=== PATIENT | female | born 1990 | race Caucasian/White ===

== ENCOUNTER 2017-12-20 04:20 | Emergency (ER) | payer OTHER ==
[~2017-12-20] VITALS: Ht 167.6 cm; Wt 74.8 kg
[~2017-12-20 04:20] MED LIST: PHEN100T82 PO; SULF1TAB24 PO
[2017-12-20 04:29] VITALS: BP 157/91
--- NOTE | 2017-12-20 05:00 | PHYS DOC ---
Past History Past Medical History: Hypertension, UTI Past Surgical History: Other Alcohol Use: None Drug Use: None Adult General Chief Complaint Chief Complaint: SHORTNESS OF BREATH HPI HPI Patient is a 27 year old F who presents with difficulty breathing. Tawny states that she doesn't feel that her breathing is adequate at rest. However she does feel that she is able to get a deep breath. She has no pain. She denies cough, fevers, sweats or chills. She denies any other associated symptoms. She denies any exacerbating or alleviating factors. She has had similar episodes over the past year. She has seen doctors for similar problems but no diagnosis is been found. Review of Systems Review of Systems Constitutional: Denies fever or chills [] Eyes: Denies change in visual acuity, redness, or eye pain [] HENT: Denies nasal congestion or sore throat [] Respiratory: Denies cough Cardiovascular: No additional information not addressed in HPI [] GI: Denies abdominal pain, nausea, vomiting, bloody stools or diarrhea [] : Denies dysuria or hematuria [] Musculoskeletal: Denies back pain or joint pain [] Integument: Denies rash or skin lesions [] Neurologic: Denies headache, focal weakness or sensory changes [] Endocrine: Denies polyuria or polydipsia [] All other systems were reviewed and found to be within normal limits, except as documented in this note. Family History Family History No pertinent family medical history was reported Current Medications Current Medications Current medications were reviewed Allergies Allergies Allergies Coded Allergies Type Severity Reaction Last Updated Verified No Known Drug Allergies 03/12/15 No Physical Exam Physical Exam Constitutional: Well developed, well nourished, no acute distress, non-toxic appearance. [] HENT: Normocephalic, atraumatic, bilateral external ears normal, oropharynx moist, no oral exudates, nose normal. [] Eyes: EOMI, conjunctiva normal, no discharge. [] Neck: Normal range of motion, no tenderness, supple, no stridor. [] Cardiovascular:Heart rate regular rhythm, Lungs & Thorax: Bilateral breath sounds clear to auscultation [] Abdomen: Bowel sounds normal, soft, no tenderness, no masses, no pulsatile masses. [] Skin: Warm, dry, no erythema, no rash. [] Extremities: No tenderness, no cyanosis, no clubbing, ROM intact, no edema. [] Neurologic: Alert and oriented X 3, normal motor function, normal sensory function, no focal deficits noted. [] Psychologic: Affect normal, judgement normal, mood normal. [] Current Patient Data Vital Signs Vital Signs Date Time Temp Pulse Resp B/P (MAP) Pulse Ox O2 Delivery O2 Flow Rate FiO2 12/20/17 04:29 97.5 103 22 100 Room Air Lab Results Laboratory Tests Test 12/20/17 04:38 POC Urine HCG, Qualitative hcg negative (Negative) EKG EKG [] Radiology/Procedures Radiology/Procedures Chest x-ray - no acute disease Course & Med Decision Making Course & Med Decision Making Pertinent Labs and Imaging studies reviewed. (See chart for details) [] Dragon Disclaimer Dragon Disclaimer This electronic medical record was generated, in whole or in part, using a voice recognition dictation system. Departure Departure: Impression: Primary Impression: Encounter for medical screening examination Disposition: HOME, SELF-CARE Condition: STABLE Referrals: PCP,NO (PCP) Patient Instructions: Medical Screening Exam Additional Instructions: Tawny was seen in the emergency department for difficulty breathing. No emergency medical condition was found on history or physical exam. She did have a normal chest x-ray. She is advised follow-up with her primary care doctor as needed for further management. ANIKET MURPHY MD Dec 20, 2017 05:00
--- NOTE | 2017-12-20 08:30 | RAD ---
2 view CXR: Clinical indications: Shortness of air. Findings: No acute lung infiltrate or pleural effusion or pulmonary edema or lung mass or pneumothorax is seen. The heart size, pulmonary vasculature, mediastinum and both yulia are unremarkable. The osseous structures appear intact. Impression: No acute radiographic abnormality is seen.
== END 2017-12-20 05:10 | disposition home or self-care (01) ==
LOC: ER 04:20
DX: R06.00 Dyspnea, unspecified (principal); I10 Essential (primary) hypertension; Z87.440 Personal history of urinary (tract) infections
CPT/HCPCS: 71046; 81025; 99284